=== PATIENT | female | born 1985 | race Caucasian/White ===

== ENCOUNTER 2019-01-13 20:14 | Emergency (ER) | payer MEDICAID, OTHER ==
[~2019-01-13] VITALS: Ht 167.6 cm; Wt 136.0 kg
[~2019-01-13 20:14] MED LIST: ALBU8HFA PO; LEVO50TA67 PO; POTA20TA19 PO
[2019-01-13 20:31] VITALS: BP 131/88
[2019-01-13] MEDS ORDERED: BUPIVAcaine/PF 7.5mg/ml (0.75%) 10ml vial IJ ONE (21:00)
[2019-01-13] MEDS ORDERED: LIDOcaine Viscous 15ml cup MM PRN (21:00)
[2019-01-13] MEDS ORDERED: benzonatate 100mg capsule PO ONE (21:05)
[2019-01-13] MEDS ORDERED: albuterol 2.5 MG/3 ML nebule NEB ONE (21:05)
[2019-01-13] MEDS ORDERED: L. R1CAP4 PO (21:40)
[2019-01-13] MEDS ORDERED: CHLO473M3 PO (21:40)
[2019-01-13] MEDS ORDERED: CLIN150C2 PO (21:40)
== END 2019-01-13 22:19 | disposition home or self-care (01) ==
LOC: ER 20:17
DX: K08.89 Other specified disorders of teeth and supporting structures (principal); R05 Cough; G89.29 Other chronic pain; Z88.1 Allergy status to other antibiotic agents; Z88.8 Allergy status to other drugs, medicaments and biological substances; Z79.899 Other long term (current) drug therapy
CPT/HCPCS: 64400; 94640; 94760; 99284; J3490

== ENCOUNTER 2020-11-26 16:12 | Emergency (ER) | payer OTHER ==
[~2020-11-26] VITALS: Ht 167.6 cm; Wt 126.3 kg
[~2020-11-26 16:12] MED LIST changes: +CHLO473M3 PO; +L. R1CAP4 PO
[2020-11-26 17:07] VITALS: BP 137/94
== END 2020-11-26 20:03 | disposition home or self-care (01) ==
LOC: ER 16:13
DX: S92.501A Displaced unspecified fracture of right lesser toe(s), initial encounter for closed fracture (principal); M79.671 Pain in right foot; G89.29 Other chronic pain; Z72.89 Other problems related to lifestyle; Z98.890 Other specified postprocedural states; Z79.2 Long term (current) use of antibiotics; Z88.8 Allergy status to other drugs, medicaments and biological substances; Z79.899 Other long term (current) drug therapy; X58.XXXA Exposure to other specified factors, initial encounter; Y93.89 Activity, other specified; Y92.89 Other specified places as the place of occurrence of the external cause; Y99.8 Other external cause status
CPT/HCPCS: 73630; 99283